=== PATIENT | female | born 2000 | race Caucasian/White ===

== ENCOUNTER 2020-05-16 16:36 | Emergency (ER) | payer MEDICAID, OTHER ==
[~2020-05-16] VITALS: Ht 165.1 cm; Wt 113.6 kg
--- NOTE | 2020-05-16 19:27 | PHYS DOC ---
Past Medical History Past Medical History: No Pertinent History (CHARY DAMON BLEACH TESTER) Past Surgical History: Appendectomy Additional Past Surgical Histo: TOOTH SX (CHARY DAMON BLEACH TESTER) Smoking Status: Current Every Day Smoker Alcohol Use: None (CHARY DAMON APRN) General Adult EDM: Chief Complaint: WRIST PAIN HPI: HPI: Patient is a 19 year old female who presents with states this evening she was getting up out of her bed when she lost her footing and went to grab to catch herself as she was falling and she ended up falling on it please [employer] with her left forearm band under her. She is having left wrist and lateral forearm pain. There is 2+ swelling. She does have range of motion of her wrist but is painful. She can make a fist but again it is painful and she cannot make a tight fist. She rates her aching pain a 7 out of 10. She states she did not take any pain medicine prior to coming. Past medical history is smoking in a tooth extraction. (CHARY DAMON BLEACH TESTER) Review of Systems: Review of Systems: Constitutional: Denies fever or chills. [] Eyes: Denies change in visual acuity. [] HENT: Denies nasal congestion or sore throat. [] Respiratory: Denies cough or shortness of breath. [] Cardiovascular: Denies chest pain. Left wrist and forearm 2+ edema. [] GI: Denies abdominal pain, nausea, vomiting, bloody stools or diarrhea. [] : Denies dysuria. [] Musculoskeletal: Denies back pain. Left wrist and forearm joint pain. [] Integument: Denies rash. [] Neurologic: Denies headache, focal weakness or sensory changes. [] Endocrine: Denies polyuria or polydipsia. [] Lymphatic: Denies swollen glands. [] Psychiatric: Denies depression or anxiety. [] (CHARY DAMON BLEACH TESTER) Heart Score: Risk Factors: Risk Factors: DM, Current or recent (<one month) smoker, HTN, HLP, family hi story of CAD, obesity. Risk Scores: Score 0 - 3: 2.5% MACE over next 6 weeks - Discharge Home Score 4 - 6: 20.3% MACE over next 6 weeks - Admit for Clinical Observation Score 7 - 10: 72.7% MACE over next 6 weeks - Early Invasive Strategies (CHARY DAMON APRN) Physical Exam: PE: Constitutional: Well developed, well nourished, no acute distress, non-toxic appearance. [] HENT: Normocephalic, atraumatic, bilateral external ears normal, oropharynx moist, no oral exudates, nose normal. [] Eyes: PERRLA, EOMI, conjunctiva normal, no discharge. [] Neck: Normal range of motion, no tenderness, supple, no stridor. [] Cardiovascular:Heart rate regular rhythm, no murmur [] Lungs & Thorax: Bilateral breath sounds clear to auscultation [] Abdomen: Bowel sounds normal, soft, no tenderness, no masses, no pulsatile masses. [] Skin: Warm, dry, no erythema, no rash. [] Back: No tenderness, no CVA tenderness. [] Extremities: Left lateral wrist and forearm tenderness, no cyanosis, no clubbing, left wrist ROM limited but intact because of pain, 2+ edema. [] Neurologic: Alert and oriented X 3, normal motor function, normal sensory function, no focal deficits noted. [] Psychologic: Affect normal, judgement normal, mood normal. [] (CHARY DAMON APRN) Current Patient Data: Vital Signs: Vital Signs Date Time Temp Pulse Resp B/P (MAP) Pulse Ox O2 Delivery O2 Flow Rate FiO2 05/16/20 19:10 99.1 83 16 126/60 (82) 98 Room Air 99.1 (CHARY DAMON APRN) EKG: EKG: [] (CHARY DAMON APRN) Radiology/Procedures: Radiology/Procedures: [] Impression: [facility] [address] [place], [place] [id number] IMAGING REPORT Signed PATIENT: MARCOS TIMMONS ACCOUNT: [id number] : 2000 LOCATION: ER AGE: 19 SEX: F EXAM STATUS: REG ER ORD. PHYSICIAN: CHARY DAMON APRN REASON: fall PROCEDURE: WRIST 3V LEFT Study: 1. CR WRIST 3V LEFT 2. CR FOREARM LEFT Indication: Fall. Comparison: None. Findings: Forearm: Normal elbow alignment. No elbow joint effusion. The radius and ulna are intact. Wrist: No acute fracture. Normal carpal and distal radioulnar joint alignment. Maintained joint spaces. Impression: Left forearm/wrist: No acute osseous abnormality. Electronically signed by: RITIKA JENSEN MD (05/16/2020 9:09 PM) [id number] DICTATED and SIGNED BY: RITIKA JENSEN MD DATE: 05/16/202108 (CHARY DAMON APRN) Course & Med Decision Making: Course & Med Decision Making Pertinent Labs and Imaging studies reviewed. (See chart for details) Alert and oriented x4. Speaks in full clear sentences. Ambulatory with a steady gait. Tenderness to the left lateral wrist and forearm area. There is 2+ swelling. No bruising or deformity is seen. No laxity in any joints. No joint deformities. Radial pulses strong. Skin pink warm and dry. Cap refill less than 2 seconds. Patient is given ibuprofen in the emergency room. X-ray shows no acute findings. Patient is placed in a volar wrist splint. [] (CHARY DAMON APRN) Course & Med Decision Making I have reviewed the PA/GRANITE SANDBLASTER APPRENTICE's note and Plan of Care. I was available for consultation as needed during the patient's visit in the emergency department. I agree with the clinical impression, plans and disposition. (PORTER LOUISE MD) Dragon Disclaimer: Shiva Disclaimer: This electronic medical record was generated, in whole or in part, using a voice recognition dictation system. (CHARY DAMON APRN) Departure Departure Impression: Primary Impression: Wrist pain, left Disposition: HOME, SELF-CARE Condition: STABLE Referrals: NO PCP (PCP) LATOYA CHRISTINE II, MD Patient Instructions: Wrist Sprain with [facility] Additional Instructions: Follow-up with a primary care physician or an orthopedic doctor. Use the wrist splint until you are seen by orthopedic. Take ibuprofen and use ice and elevation to help with your pain. Scripts Ibuprofen (IBUPROFEN) 600 Mg Tablet 600 MG PO PRN Q6HRS PRN for INFLAMMATION, #20 TAB Prov: CHARY DAMON APRN 05/16/20 CHARY DAMON APRN May 16, 2020 19:27 PORTER LOUISE MD May 16, 2020 23:20
[2020-05-16] MEDS ORDERED: IBUPROFEN 200 MG TABLET. PO ONE (19:30)
--- NOTE | 2020-05-16 21:12 | RAD ---
Study: 1. CR WRIST 3V LEFT 2. CR FOREARM LEFT Indication: Fall. Comparison: None. Findings: Forearm: Normal elbow alignment. No elbow joint effusion. The radius and ulna are intact. Wrist: No acute fracture. Normal carpal and distal radioulnar joint alignment. Maintained joint spaces. Impression: Left forearm/wrist: No acute osseous abnormality. Electronically signed by: RITIKA JENSEN MD (05/16/2020 9:09 PM) [id number]
[2020-05-16] MEDS ORDERED: IBUP-1007 PO (21:20)
[2020-05-16 21:30] VITALS: BP 126/62
== END 2020-05-16 21:40 | disposition home or self-care (01) ==
LOC: ER 16:36
DX: M25.532 Pain in left wrist (principal); M79.632 Pain in left forearm; R60.0 Localized edema; F17.200 Nicotine dependence, unspecified, uncomplicated; Z90.89 Acquired absence of other organs; Z98.890 Other specified postprocedural states
CPT/HCPCS: 29125; 73090; 73110; 99284; A4565

== ENCOUNTER → 2021-12-30 | Emergency (ER) | payer OTHER ==
[~2021-12-30] MED LIST: DOXY100C3 PO; IBUP-1007 PO; cefTRIAXone IM 500 MG VIAL. IM ONE
[2021-12-30 22:02] LABS: BACTERIA,URINE FEW /HPF (0-FEW); RBC,URINE OCC /HPF (0-2); WBC,URINE OCC /HPF (0-4)
--- NOTE | 2021-12-30 23:14 | PHYS DOC ---
Past Medical History Past Medical History: No Pertinent History Past Surgical History: Appendectomy Additional Past Surgical Histo: TOOTH SX Smoking Status: Current Every Day Smoker Alcohol Use: None General Adult EDM: Chief Complaint: SEXUALLY TRANSMITTED DISEASE HPI: HPI: Patient is a 21-year-old female presents to the emergency department reporting her sexual partner stated he was treated for either gonorrhea chlamydia 3 days ago. Patient denies vaginal discharge afterwards but wants treated. Patient reports her last menstrual cycle 3 weeks ago with normal duration of flow, denies abdominal pain or discomfort, denies vaginal bleeding, denies nausea, vomiting, diarrhea, denies chest pains. Patient denies rashes or lesions to her vagina, denies rashes to other parts of her body. Patient denies recent fever or chills, denies other physical complaints physical concerns. Review of Systems: Review of Systems: 14 body systems of review of systems have been reviewed. See HPI for pertinent positives and negative responses, otherwise all other systems are negative, nonpertinent or noncontributory. Constitutional: Negative except as outlined in HPI above. Skin: Negative except as outlined in HPI above. Eyes: Negative except as outlined in HPI above. HENT: Negative except as outlined in HPI above. Respiratory: Negative except as outlined in HPI above. Cardiovascular: Negative except as outlined in HPI above. GI: Negative except as outlined in HPI above. : Negative except as outlined in HPI above. Musculoskeletal: Negative except as outlined in HPI above. Integument: Negative except as outlined in HPI above. Neurologic: Negative except as outlined in HPI above. Endocrine: Negative except as outlined in HPI above. Lymphatic: Negative except as outlined in HPI above. Psychiatric: Negative except as outlined in HPI above. Heart Score: C/O Chest Pain: No Risk Factors: Risk Factors: DM, Current or recent (<one month) smoker, HTN, HLP, family history of CAD, obesity. Risk Scores: Score 0 - 3: 2.5% MACE over next 6 weeks - Discharge Home Score 4 - 6: 20.3% MACE over next 6 weeks - Admit for Clinical Observation Score 7 - 10: 72.7% MACE over next 6 weeks - Early Invasive Strategies Allergies: Allergies: Allergies Coded Allergies Type Severity Reaction Last Updated Verified No Known Drug Allergies 05/16/20 No Physical Exam: PE: Constitutional: Well developed, well nourished, no acute distress, non-toxic appearance. 21-year-old female in no apparent distress. HENT: Normocephalic, atraumatic. Eyes: Conjunctiva normal, no discharge. Neck: Normal range of motion, no stridor. Cardiovascular: No cyanosis appreciated, distal cap refill less than 2 seconds. Lungs & Thorax: Patient is in no respiratory distress, no audible adventitious lung sounds appreciated. Abdomen: Nontender, no abnormalities noted. Skin: Warm, dry, no erythema, no rash. Back: No tenderness, no deformities. Extremities: No tenderness, no cyanosis, no clubbing, ROM intact, no edema. Neurologic: Alert and oriented X 3, normal motor function, normal sensory function, no focal deficits noted. Psychologic: Affect normal, judgement normal, mood normal. Current Patient Data: Labs: Laboratory Tests Test 12/30/21 20:25 12/30/21 20:54 Urine Collection Type Unknown Urine Color (Auto) Yellow Urine Turbidity Clear Urine pH (Auto) 6.0 (<5.0-8.0) Urine Specific [place] 1.022 (1.000-1.030) Urine Protein (Auto) Negative mg/dL (Negative) Urine Glucose (Auto)(UA) Negative mg/dL (Negative) Urine Ketones (Auto) Trace mg/dL (Negative) Urine Blood (Auto) Negative (Negative) Urine Nitrite Negative (Negative) Urine Bilirubin (Auto) Negative (Negative) Urine Urobilinogen (Auto) Normal mg/dL (Normal) Urine Leukocyte Esterase (Auto) Negative (Negative) Urine RBC Occ /HPF (0-2) Urine WBC Occ /HPF (0-4) Urine Squamous Epithelial Cells Mod /LPF Urine Bacteria Few /HPF (0-FEW) Urine Mucus Mod /LPF POC Urine HCG, Qualitative Hcg negative (Negative) EKG: EKG: [] Radiology/Procedures: Radiology/Procedures: [] Course & Med Decision Making: Course & Med Decision Making Pertinent Labs and Imaging studies reviewed. (See chart for details) 21-year-old female, vital signs reviewed, presents to the emergency department concerning STI exposure. Will obtain urinalysis assay, urine test, will send urine for gonorrhea chlamydia, will treat prophylactically with 500 mg Rocephin IM, doxycycline twice daily regimen. The patient's urine is not infected, she is not for urine test, discussed with patient's safe sex practices, condom barrier sex, return to ER for worsening symptoms or concerns, follow-up with primary care soon. Patient gave verbal understanding and is amenable to ED discharge planning. Shiva Disclaimer: Shiva Disclaimer: This electronic medical record was generated, in whole or in part, using a voice recognition dictation system. Departure Departure Impression: Primary Impression: Exposure to sexually transmitted disease (STD) Disposition: HOME / SELF CARE / HOMELESS Condition: GOOD Referrals: NO PCP (PCP) Patient Instructions: Sexually Transmitted Disease Additional Instructions: You are seen today in the emergency department after concerns of being exposed to a sexually transmitted disease chlamydia. You were treated for both gonorrhea and chlamydia today in the emergency department. You are given 500 mg Rocephin intramuscular injection in the emergency department, I have sent you home with a prescription for doxycycline that you will take twice a day for the next 7 days. Please take as directed till complete. I have attached a list of primary care physicians and clinics in this area for you to establish care with, please follow-up with your primary care physician soon. Thank you for visiting our Emergency Department. It was a pleasure taking care of you today in the emergency department and we appreciate you trusting us with your care. If any additional problems come up don't hesitate to return to visit us. Please follow up with your primary care provider so they can plan additional care if needed and know about the problem that you had. If symptoms worsen come back to the Emergency Department. Any concerning symptoms that start such as chest pain, shortness of air, weakness or numbness on one side of the body, running high fevers or any other concerning symptoms return to the ER. [facility] [address] [place] [address] [facility] [address] [place] [address] [facility] [address] [place] [address] [facility] [address] [place] [address] [facility] [address] [place] [address] [facility] [address] [place] [address] [facility] [address] [place] [address] [facility] [address] [place] [address] [facility] [address] [place] [address] [facility] [address] [place] [address] Scripts Doxycycline Hyclate (DOXYCYCLINE HYCLATE) 100 Mg Capsule 100 MG PO BID for STI for 7 Days, #14 CAP 0 Refills Prov: ELIN HERNADEZ APRN 12/30/21 ELIN HERNADEZ APRN December 30, 2021 23:14
[2022-01-05 21:21] LABS: GC PROBE Positive (Negative)
== END | disposition home or self-care (01) ==
LOC: ER 20:14
DX: Z20.2 Contact with and (suspected) exposure to infections with a predominantly sexual mode of transmission (principal); F17.200 Nicotine dependence, unspecified, uncomplicated
CPT/HCPCS: 81001; 81025; 87491; 87591; 96372; 99283; J0696